=== PATIENT | female | born 1945 | race Caucasian/White ===

== ENCOUNTER 2022-02-28 10:31 | Outpatient (CLI) | payer MEDICARE, BC | END 2022-02-28 10:32 | disposition home or self-care (01) | LOC: CSHMAMMO 10:31 | PROVIDERS: ATTEND Internal Medicine | DX: Z12.31 Encounter for screening mammogram for malignant neoplasm of breast (principal) | CPT/HCPCS: 77063; 77067 ==

== ENCOUNTER 2024-05-29 13:20 | Outpatient (CLI) | payer BC, MEDICARE | END 2024-05-29 13:21 | disposition home or self-care (01) | LOC: CSHMAMMO 13:20 | PROVIDERS: ATTEND Internal Medicine | DX: Z12.31 Encounter for screening mammogram for malignant neoplasm of breast (principal) | CPT/HCPCS: 77063; 77067 ==